=== PATIENT | female | born 1965 | race Caucasian/White ===

== ENCOUNTER 2019-08-11 14:35 | Outpatient (CLI) | payer OTHER, SELFPAY ==
--- NOTE | ~2019-08-11 | MR_ITS ---
EXAMINATION: MR lumbar spine wo [facility] EXAM DATE: 08/11/2019 15:59 INDICATION: Low back pain. TECHNIQUE: Multi-sequential, multiplanar MR images of the lumbar spine were obtained without contrast . Sagittal T1, T2, T2 fat saturation images. Axial T2 weighted images. There is no prior study for comparison. FINDINGS: There is moderate to severe central and anterior compression fracture of L1 without edema. This is chronic. There are scattered focal signal abnormalities consistent with hemangiomata, otherwi se without focal suspicious marrow signal abnormalities. The vertebral bodies are aligned in the AP d imension. Mild lower lumbar disc disease. Paraspinal soft tissue is unremarkable. Level by level evaluation: T12-L1: There is a mild diffuse disc bulge. Facet arthropathy: Mild. Neural foraminal stenosis: No stenosis. Central canal stenosis: No stenosis. L1-L2: There is a mild to moderate diffuse disc bulge. Facet arthropathy: Mild to moderate. Neural foraminal stenosis: Mild to moderate right. Central canal stenosis: Mild. L2-L3: Disc does not extend beyond the endplate margin. Facet arthropathy: Mild to moderate. Neural foraminal stenosis: No stenosis. Central canal stenosis: No stenosis. L3-L4: There is a minimal diffuse disc bulge. Facet arthropathy: Mild. Neural foraminal stenosis: Mild left. Central canal stenosis: No stenosis. L4-L5: There is a mild diffuse disc bulge. Facet arthropathy: Mild to moderate. Neural foraminal stenosis: Mild bilateral. Central canal stenosis: Mild. L5-S1: There is a mild to moderate diffuse disc bulge. Facet arthropathy: Moderate to severe . Ligamentum flavum enlargement. Neural foraminal stenosis: Moderate left, mild to moderate right. Central canal stenosis: Mild to moderate. IMPRESSION: 1. Chronic L1 compression fracture. 2. Overall mild to moderate lumbar spondylosis. Reviewed, dictated and finalized at location B. O [facility]OC[facility]
== END 2019-08-11 14:36 | disposition home or self-care (01) ==
DX: M47.816 Spondylosis without myelopathy or radiculopathy, lumbar region (principal); M48.56XS Collapsed vertebra, not elsewhere classified, lumbar region, sequela of fracture
CPT/HCPCS: 72148

== ENCOUNTER 2021-10-17 14:48 | Emergency (ER) | payer OTHER, SELFPAY ==
[2021-10-17] VITALS (7 sets, daily range): BP systolic 152; BP diastolic 98; PULSE 86–112; RESP 12–29; TEMP 36.4; O2SAT 92–100
--- NOTE | ~2021-10-17 | XR_ITS ---
EXAMINATION: XR chest 2V DATE: 10/17/2021 15:21 INDICATION: Cough and shortness of breath TECHNIQUE: PA and lateral views of the chest are obtained. COMPARISON: None available FINDINGS: There are minimal airspace opacities of the lung bases. There is no pleural effusion or pne umothorax. The cardiomediastinal silhouette is normal. There is moderate thoracic spondylosis. IMPRESSION: 1. Minimal bibasilar airspace opacities, consistent with atelectasis versus pneumonia. Reviewed, dictated and finalized at location B. IMPRESSION: 1. Minimal bibasilar airspace opacities, consistent with atelectasis versus pne umonia.
--- NOTE | ~2021-10-17 | CT_ITS ---
EXAMINATION: CTA chest PE protocol DATE: 10/17/2021 17:26 INDICATION: Dyspnea. Cough and shortness of breath for one week. TECHNIQUE: Computed tomography angiography (CTA) of the chest was performed with 100 mL Omnipaque-300 intravenous contrast timed to evaluate the pulmonary arteries. Coronal maximum intensity projection 3D-reconstructions were created by the technologist. Automated exposure control and iterative reconst ruction technique were employed. Exam dose: 652.09 mGy-cm total exam DLP. COMPARISON: 10/17/2021 PA and lateral chest FINDINGS: There is diagnostic contrast enhancement of the pulmonary arteries and no evidence of pulmo nary embolism. No thoracic aortic aneurysm or dissection. There is aortic and coronary artery calcification. Normal heart size. No pericardial effusion. No hilar or mediastinal mass lesion or lymphadenopathy. No pulmonary infiltrate or consolidation or pulmonary mass lesion. No pleural effusion or pneumothora x. There is a large sliding hiatal hernia. Prominent deformity of C7 vertebral body DEXA scoliosis and diffuse idiopathic skeletal hyperostosis of the thoracic spine. Included skeletal structures are otherwise unremarkable. IMPRESSION: No evidence of pulmonary embolism Reviewed, dictated and finalized at [facility]. Reviewed, dictated and finalized at location A.
--- NOTE | 2021-10-17 14:57 | ECG_ITS ---
Measurements Intervals Amigo Rate: 94 P: 46 VT: 142 QRS: 8 QRSD: 106 T: 40 QT: 349 QTc: 438 Interpretive Statements SINUS RHYTHM EARLY PRECORDIAL R/S TRANSITION BASELINE ARTIFACT- I, III, AVR, AVL BORDERLINE ECG Electronically Signed On 10-17-2021 15:03:40 CDT by Gagandeep [place] D.O.
[2021-10-17 15:23] LABS: Basophils Percent Auto 0.3 % (0.2-1.2); Eosinophils Absolute Auto 0.4 K/mm3 (0-0.3); Eosinophils Percent Auto 3.2 % (0-4.4); Hematocrit 38.9 % (37.0-47.0); Hemoglobin 11.7 g/dL (12.0-15.0); Immature Granulocyte Absolute 0.04 K/mm3 (0.00-0.031); Immature Granulocyte Percent A 0.3 % (0-0.5); Mean Corpuscular HGB Conc 30.1 g/dl (32-36); Mean Corpuscular Hemoglobin 23.2 pg (26-34); Mean Platelet Volume 9.8 fl (7.4-10.4); Monocytes Absolute Auto 0.8 K/mm3 (0.1-0.6); Neutrophils Absolute Auto 6.7 K/mm3 (1.3-6.7); Neutrophils Percent Auto 58.2 % (45.5-73.1); Platelet Count Result 331 k/mm3 (150-375); Red Blood Count 5.05 M/mm3 (4.2-5.4); White Blood Count 11.6 K/mm3 (4.5-10.0)
[2021-10-17 15:34] LABS: Alanine Aminotransferase 9 U/L (4-35); Albumin Level 4.1 g/dL (3.5-5.1); Alkaline Phosphatase 87 U/L (38-126); Anion Gap 5 mmol/L (8-16); Aspartate Amino Transferase 19 U/L (14-36); Bilirubin,Total 0.3 mg/dL (0.2-1.3); Blood Urea Nitrogen 12 mg/dL (7-17); Calcium 9.1 mg/dL (8.4-10.2); Carbon Dioxide 28 mmol/L (22-30); Chloride 104 mmol/L (98-107); Estimated CRCL calculation 93 ml/min; Estimated Glomerular Filt Rate > 60; Glucose 105 mg/dL (65-110); Potassium 3.5 mmol/L (3.4-5.0); Sodium 137 mmol/L (137-145)
--- NOTE | 2021-10-17 16:22 | ED.SOB ---
HPI - SOB/Dyspnea General Chief Complaint: Shortness of Breath/Dyspnea Stated Complaint: cough and shortness of breath Time Seen by Provider: 10/17/21 16:08 Source: RN notes reviewed History of Present Illness HPI Narrative: Patient presents emergency department from home for shortness of breath. Patient states she has had a cough this been productive of clear and green sputum for the past 1 week she states associate with this she has had some wheezing she denies any fevers or chills, chest pain, abdominal pain nausea vomiting or any other symptoms. States that she had COVID at the end of 2020. Patient states she does still smoke daily she denies any other symptoms Related Data Allergies Allergy/AdvReac Type Severity Reaction Status Date / Time codeine Allergy Unknown Verified 03/05/15 09:04 Review of Systems Review of Systems: Gen.: Denies fevers or chills ENT: Denies congestion Respiratory: See HPI CV: Denies chest pain or palpitations GI: Denies abdominal pain nausea, emesis or diarrhea Musculoskeletal: Denies back pain or muscle pain Neuro: Denies numbness, tingling, weakness or focal weakness Skin: Denies rash Except as documented, all other systems reviewed and negative [facility] Past Medical History Medical History (Updated 10/17/21 @ 17:44 by Jaime Jenkins DO) COVID-19 Social History Social History (Updated 10/17/21 @ 16:24 by Jaime Jenkins DO) Smoking status: Current every day smoker Exam Narrative: APPEARANCE: No acute distress, nontoxic, resting in bed EYES: EOMI HEENT: Normocephalic, atraumatic, OMM RESPIRATORY: No respiratory distress wheezing throughout the bilateral lung west no rhonchi or rales CARDIOVASCULAR: Regular rate and rhythm without murmurs rubs or gallops. ABDOMINAL: Soft, nontender, nondistended, no rebound or guarding MUSCULOSKELETAl: Moves all extremities. No clubbing, cyanosis or edema. NEURO: Awake and alert. Following commands, speech normal, no focal deficits SKIN:: Warm, dry. No rashes lesions or abrasions PSYCHIATRIC: Normal affect/mood, Course Course Emergency Course: Following breathing treatments repeat lung exam clear to station bilaterally Discussed with patient results of workup and diagnosis. Discussed need for follow-up with primary care, proper use of medication, and reasons to return to the emergency department. Patient understands and agrees to current treatment plan Vital Signs Vital signs: Vital Signs Temperature 97.6 F 10/17/21 14:52 Pulse Rate 112 H 10/17/21 14:52 Respiratory Rate 18 10/17/21 14:52 Blood Pressure 152/98 H 10/17/21 14:52 Pulse Oximetry 98 10/17/21 14:52 Temperature 97.6 F 10/17/21 14:52 Pulse Rate 92 10/17/21 16:32 Respiratory Rate 29 H 10/17/21 16:32 Blood Pressure 152/98 H 10/17/21 14:52 Pulse Oximetry 100 10/17/21 15:31 MDM - SOB/Dyspnea Lab Data Result diagrams: 10/17/21 15:15 10/17/21 15:15 Labs: Lab Results 10/17/21 10/17/21 10/17/21 Range/Units 15:15 15:15 16:28 WBC 11.6 H (4.5-10.0) K/mm3 RBC 5.05 (4.2-5.4) M/mm3 Hgb 11.7 L (12.0-15.0) g/dL Hct 38.9 (37.0-47.0) % MCV 77.0 L (80-100) fl MCH 23.2 L (26-34) pg MCHC 30.1 L (32-36) g/dl RDW 17.0 H (11.5-14.5) % Plt Count 331 (150-375) k/mm3 MPV 9.8 (7.4-10.4) fl Immature Gran % (Auto) 0.3 (0-0.5) % Neut % (Auto) 58.2 (45.5-73.1) % Lymph % (Auto) 31.0 (18.3-44.2) % [place] % (Auto) 7.0 (2.6-8.5) % Eos % (Auto) 3.2 (0-4.4) % Baso % (Auto) 0.3 (0.2-1.2) % Lymph # (Auto) 3.60 H (0.9-3.2) K/mm3 [place] # (Auto) 0.8 H (0.1-0.6) K/mm3 Eos # (Auto) 0.4 H (0-0.3) K/mm3 Baso # (Auto) 0.0 (0.0-0.1) K/mm3 Abs Immat Gran (auto) 0.04 H (0.00-0.031) K/mm3 Absolute Neuts (auto) 6.7 (1.3-6.7) K/mm3 Absolute Nucleated RBC 0.0 (0.0-0.012) K/mm3 Nucleated RBC % 0.0 (0.0-0.2) % D-Dimer (<0.48) ug/mL S
[2021-10-17] MEDS: ALBUTEROL SULFATE NEB 2.5 MG/0.5 ML INH 5 MG INHALATION (16:35)
[2021-10-17] MEDS: IPRATROPIUM BR 0.02% INH SOLN 0.5 MG/2.5 ML VIAL INHALATION (16:35)
[2021-10-17 17:01] LABS: D Dimer 0.51 ug/mL (<0.48)
[2021-10-17 17:08] LABS: SARS-CoV-2 RNA PCR Negative
[2021-10-17] MEDS: methylPREDNISolone SOD SUCC 125 MG VIAL IV PUSH (17:10)
== END 2021-10-17 19:25 | disposition home or self-care (01) ==
PROVIDERS: Emergency Medicine; Emergency Provider Emergency Medicine
DX: J44.1 Chronic obstructive pulmonary disease with (acute) exacerbation (principal); Z20.822 Contact with and (suspected) exposure to COVID-19; Z86.16 Personal history of COVID-19; F17.200 Nicotine dependence, unspecified, uncomplicated; R94.31 Abnormal electrocardiogram [ECG] [EKG]
CPT/HCPCS: 36415; 71046; 71275; 80053; 85025; 85380; 93005; 96374; 99284; C9803; J2930; Q9967; U0003; U0005